=== PATIENT | male | born 1990 | race Caucasian/White ===

== ENCOUNTER 2019-08-21 07:37 | Emergency (ER) | payer BC ==
[~2019-08-21] VITALS: Ht 175.3 cm; Wt 113.6 kg
[2019-08-21 08:45] VITALS: BP 142/90
== END 2019-08-21 09:18 | disposition home or self-care (01) ==
LOC: ER 07:37
DX: F41.9 Anxiety disorder, unspecified (principal); R00.2 Palpitations; G47.30 Sleep apnea, unspecified
CPT/HCPCS: 93005; 99283